=== PATIENT | male | born 1970 | race Caucasian/White ===

== ENCOUNTER 2019-09-27 08:39 | Day surgery (SDC) | payer OTHER ==
[~2019-09-27] VITALS: Ht 172.7 cm; Wt 78.7 kg
[~2019-09-27 08:39] MED LIST: ATOR40TA68 PO; HYDR12.58 PO; METF-849 PO
[2019-09-27 09:28] VITALS: Ht 172.7 cm; Wt 78.7 kg
[2019-09-27 09:54] VITALS: BP 147/76; PULSE 56; RESP 18
[2019-09-27] MEDS ORDERED: FENTAnyl 50 MCG/ML VIAL ONE (10:34)
[2019-09-27] MEDS ORDERED: MIDAZOLAM 1 MG/ML 2 ML INJ ONE ×2 (10:34→10:35)
[2019-09-27 11:05] VITALS: BP 113/68; PULSE 53; RESP 20
== END 2019-09-27 14:24 | disposition home or self-care (01) ==
LOC: GIL 08:39
PROVIDERS: ATTEND Internal Medicine Gastroenterology
DX: Z12.11 Encounter for screening for malignant neoplasm of colon (principal); K64.4 Residual hemorrhoidal skin tags; E11.9 Type 2 diabetes mellitus without complications; I10 Essential (primary) hypertension; Z79.84 Long term (current) use of oral hypoglycemic drugs; F17.200 Nicotine dependence, unspecified, uncomplicated
CPT/HCPCS: 45378; 82962; J2250; J3010